=== PATIENT | male | born 1945 | race Hispanic/Latino ===

== ENCOUNTER → 2018-06-27 | Outpatient (CLI) | payer OTHER ==
[~2018-06-27] MED LIST: ALBUTEROL SULFATE 0.083% 2.5 MG/3 ML INH IH ONE
== END | disposition home or self-care (01) ==
LOC: RESP 09:07
PROVIDERS: ATTEND Internal Medicine Cardiovascular Disease
DX: R06.02 Shortness of breath (principal); J40 Bronchitis, not specified as acute or chronic
CPT/HCPCS: 94060; 94727; 94729

== ENCOUNTER → 2018-06-28 | Outpatient (CLI) | payer OTHER | END | disposition home or self-care (01) | LOC: EDUNIT# 13:00 → SHCH 13:06 | PROVIDERS: ATTEND Internal Medicine Cardiovascular Disease | DX: I51.7 Cardiomegaly (principal); I34.0 Nonrheumatic mitral (valve) insufficiency; Z95.1 Presence of aortocoronary bypass graft | CPT/HCPCS: 93306 ==

== ENCOUNTER 2019-03-27 06:09 | Day surgery (SDC) | payer OTHER ==
[2019-03-27] VITALS (7 sets, daily range): BP systolic 87–143; BP diastolic 51–82
[~2019-03-27] VITALS: Ht 177.8 cm; Wt 103.4 kg
[~2019-03-27 06:09] MED LIST changes: -ALBUTEROL SULFATE 0.083% 2.5 MG/3 ML INH IH ONE; +AMLO2.5T4 PO; +APIX5TAB PO; +ASPI-1197 PO; +ATOR40TA71 PO; +BUPR300T53 PO; +DULA0.75 SQ; +FENO54TA6 PO; +GLIP5TAB11 PO; +IRBE150T27 PO; +SODIUM CHLORIDE 0.9% 1000ML 1,000 ML IV ONE
[2019-03-27] MEDS ORDERED: APIX5TAB PO (07:37)
[2019-03-27] MEDS ORDERED: VITA1CAP PO (07:37)
[2019-03-27] MEDS ORDERED: FUROSEMIDE PO (07:37)
[2019-03-27] MEDS ORDERED: METO-409 PO (07:37)
[2019-03-27] MEDS ORDERED: UBID100C10 PO (07:37)
[2019-03-27] MEDS ORDERED: OMEG-112 PO (07:37)
[2019-03-27] MEDS ORDERED: PROPOFOL 10 MG/ML 20ML VIAL IV ONE ×2 (08:15)
== END 2019-03-27 09:10 | disposition home or self-care (01) ==
LOC: ENDO 06:09 → DAH 06:09 → ENDO 09:10
PROVIDERS: ATTEND Internal Medicine Gastroenterology
DX: K62.1 Rectal polyp (principal); K63.5 Polyp of colon; K21.9 Gastro-esophageal reflux disease without esophagitis; E78.5 Hyperlipidemia, unspecified; I12.9 Hypertensive chronic kidney disease with stage 1 through stage 4 chronic kidney disease, or unspecified chronic kidney disease; E11.22 Type 2 diabetes mellitus with diabetic chronic kidney disease; N18.3 Chronic kidney disease, stage 3 (moderate); I48.91 Unspecified atrial fibrillation; F17.210 Nicotine dependence, cigarettes, uncomplicated; Z95.5 Presence of coronary angioplasty implant and graft; Z98.890 Other specified postprocedural states; Z79.01 Long term (current) use of anticoagulants; Z79.899 Other long term (current) drug therapy; Z79.84 Long term (current) use of oral hypoglycemic drugs; Z79.82 Long term (current) use of aspirin; Z98.49 Cataract extraction status, unspecified eye; Z72.89 Other problems related to lifestyle; Z82.49 Family history of ischemic heart disease and other diseases of the circulatory system; Z83.3 Family history of diabetes mellitus; Z82.3 Family history of stroke
CPT/HCPCS: 45380; 82948 ×2; 88305; 93005; A4606; J2704 ×2; J7030

== ENCOUNTER → 2019-05-09 | Outpatient (CLI) | payer OTHER ==
[~2019-05-09] MED LIST changes: +FUROSEMIDE PO; +METO-409 PO; +OMEG-112 PO; -SODIUM CHLORIDE 0.9% 1000ML 1,000 ML IV ONE; +UBID100C10 PO; +VITA1CAP PO
== END | disposition home or self-care (01) ==
LOC: SHCH 12:04
PROVIDERS: ATTEND Internal Medicine Cardiovascular Disease
DX: I70.213 Atherosclerosis of native arteries of extremities with intermittent claudication, bilateral legs (principal)
CPT/HCPCS: 93925

== ENCOUNTER → 2020-10-26 | Outpatient (CLI) | payer MEDICARE ==
[~2020-10-26] MED LIST changes: +IRBE150T24 PO; -IRBE150T27 PO
== END | disposition home or self-care (01) ==
LOC: SHCH 10:27
PROVIDERS: ATTEND Internal Medicine Cardiovascular Disease
DX: I08.1 Rheumatic disorders of both mitral and tricuspid valves (principal); I25.10 Atherosclerotic heart disease of native coronary artery without angina pectoris; I10 Essential (primary) hypertension; E66.9 Obesity, unspecified; E11.9 Type 2 diabetes mellitus without complications
CPT/HCPCS: 93306; 93356

== ENCOUNTER → 2022-01-12 | Outpatient (CLI) | payer MEDICARE | END | disposition home or self-care (01) | LOC: SHCH 10:47 | PROVIDERS: ATTEND Internal Medicine Cardiovascular Disease | DX: I11.9 Hypertensive heart disease without heart failure (principal); E11.9 Type 2 diabetes mellitus without complications; E78.5 Hyperlipidemia, unspecified; Z95.1 Presence of aortocoronary bypass graft; Z98.61 Coronary angioplasty status | CPT/HCPCS: 93306 ==

== ENCOUNTER → 2025-02-17 | Outpatient (CLI) | payer MEDICARE ==
[~2025-02-17] MED LIST changes: -GLIP5TAB11 PO; +GLIP5TAB15 PO; -IRBE150T24 PO; +IRBE150T34 PO
--- NOTE | 2025-02-17 23:23 | HMCIMG ---
EXAM: CR Right Elbow, 2 views. CLINICAL HISTORY: Traumatic injury to the elbow. Swelling of the right elbow. COMPARISON: None provided. FINDINGS: Enthesophyte at the site of the common extensor and flexor tendon origin from the lateral and medial epicondyle of the humerus, respectively. Diffuse soft tissue edema posterior to the olecranon process of the ulna. Enthesophyte at the site of the attachment of the triceps tendon on the coracoid process of the ulna. No acute fracture or aggressive appearing osseous lesion. Joint spaces are within normal limits. No radiographic evidence of joint effusion. IMPRESSION: No acute osseous abnormality. Diffuse soft tissue edema posterior to the olecranon process of the ulna. Enthesophyte at the site of the common extensor and flexor tendon origin from the lateral and medial epicondyle of the humerus, respectively. Diffuse soft tissue edema posterior to the olecranon process of the ulna probable changes of olecranon bursitis. Enthesophyte at the site of the attachment of the triceps tendon on the coracoid process of the ulna. /[place]
== END | disposition home or self-care (01) ==
LOC: DAH 14:49
PROVIDERS: ATTEND Family Medicine
DX: S59.901A Unspecified injury of right elbow, initial encounter (principal); M25.421 Effusion, right elbow; R60.0 Localized edema; M77.8 Other enthesopathies, not elsewhere classified; X58.XXXA Exposure to other specified factors, initial encounter; Y93.89 Activity, other specified; Y92.89 Other specified places as the place of occurrence of the external cause; Y99.8 Other external cause status
CPT/HCPCS: 73070